=== PATIENT | male | born 1980 | race African-American/Black ===

== ENCOUNTER 2020-04-24 05:03 | Emergency (ER) | payer SELFPAY ==
[~2020-04-24] VITALS: Ht 175.3 cm; Wt 86.0 kg
[2020-04-24 05:21] VITALS: BP 141/83
== END 2020-04-24 06:00 | disposition left against medical advice (07) ==
LOC: ER 05:33
DX: Z53.21 Procedure and treatment not carried out due to patient leaving prior to being seen by health care provider (principal)

== ENCOUNTER 2020-06-19 02:43 | Emergency (ER) | payer MEDICAID ==
[~2020-06-19] VITALS: Ht 175.3 cm; Wt 83.0 kg
[2020-06-19 04:18] LABS: BASOPHILS % 0.4 % (0.0-2.0); EOSINOPHILS % 2.1 % (0.0-5.0); HEMATOCRIT. 42.5 % (42.0-52.0); HEMOGLOBIN. 13.6 g/dL (14.0-18.0); LYMPHOCYTES % 17.1 % (20.0-50.0); MEAN CORPUSCULAR HEMOGLOBIN 26.9 pg (28.0-32.0); MEAN CORPUSCULAR VOLUME 84.4 fL (80.0-94.0); MEAN PLATELET VOLUME 7.5 fl (7.4-10.4); MONOCYTES % 10.8 % (2.0-8.0); NEUTROPHILS % 69.6 % (40.0-76.0); PLATELET 286 x1000/uL (130-400); RED BLOOD CELL COUNT 5.03 mill/uL (4.7-6.1); RED CELL DISTRIBUTION WIDTH 14.4 % (11.6-14.6)
[2020-06-19 04:24] LABS: CHLORIDE 107 mEq/L (98-107)
[2020-06-19 04:27] LABS: PROTHROMBIN TIME 10.3 sec (9.6-11.0)
[2020-06-19 05:42] LABS: CLARITY URINE CLOUDY (CLEAR); COLOR URINE DK YELLOW (YELLOW); KETONES URINE NEGATIVE (NEGATIVE); LEUKOCYTE ESTERASE URINE NEGATIVE (NEGATIVE); NITRITE URINE NEGATIVE (NEGATIVE); OCCULT BLOOD URINE 3+ (NEGATIVE); PROTEIN URINE 1+ (NEGATIVE); SPECIFIC GRAVITY URINE 1.023 (1.005-1.030)
[2020-06-19 06:19] VITALS: BP 117/71
== END 2020-06-19 06:19 | disposition home or self-care (01) ==
LOC: ER 02:45
DX: R31.9 Hematuria, unspecified (principal)
CPT/HCPCS: 36415; 80053; 81003; 85025; 99283